=== PATIENT | male | born 1960 | race Caucasian/White ===

== ENCOUNTER 2017-09-18 13:00 | Emergency (ER) | payer OTHER ==
[2017-09-18 13:10] VITALS: BP 139/87; PULSE 79; RESP 16; TEMP 97.2; O2SAT 97
--- NOTE | 2017-09-18 13:19 | EDPHY ---
H & P Time Seen by Provider: 09/18/17 13:17 HPI/ROS: CHIEF COMPLAINT: Head injury and neck pain HISTORY OF PRESENT ILLNESS: Patient lost his balance and fell at 11:30 a.m. Today at the [facility]. He did not lose consciousness but remembers going to fall and then has a little bit of memory loss remembering standing up and seeing his son crying because (the patient's) his nose was bleeding. [place] now [place] stiffness which is worse with turning his neck especially to the left. He has a 1 or 2/10 headache. The neck pain is really the worst symptom. Mild in severity. It is not associated with vertigo or weakness or numbness in extremities. Started just after the fall. Aggravating factors as above. REVIEW OF SYSTEMS: Eye: no change in vision ENT: Nose bleed as above which has stopped spontaneously Cardiac: no chest pain or syncope Pulmonary: no cough or SOB Abdomen: No vomiting or abdominal pain Musculoskeletal: HPI Skin: no rash Neuro: HPI Constitutional: no fever : No symptoms A comprehensive 10 point review of systems is otherwise negative aside from elements mentioned in the history of present illness. PAST MEDICAL HISTORY: Negative Social history: , was with his son today General Appearance: Alert and conversant, cooperative. Eyes: No scleral icterus. Extraocular motion intact and pupils equal and reactive. ENT, Mouth: Normal mucous membranes. No hemotympanum. No active nasal bleeding and no septal hematoma. Respiratory: Normal respiratory effort, breath sounds equal, lungs are clear to auscultation. Cardiovascular: Regular rate and rhythm. Gastrointestinal: Abdomen is soft and non tender. Neurological: Alert, face symmetric, normal motor and sensory in extremities. Negative Romberg and not ataxic. Normal strength in deltoids, biceps, triceps, wrist extensor, and intrinsics. Skin: Warm and dry, no rashes. Musculoskeletal: No midline spinal tenderness including the neck. Psychiatric: Not agitated. Emergency Department course/MDM: Patient neck is cleared clinically, likely neck strain. Does not have distracting injury. Noncontrast head CT scanning versus serial observation discussed with the patient, he would prefer to proceed with observation and not imaging, as he feels well now, has minimal symptoms, was lucid enough [place] I think this is reasonable, his will be with him over the next 24-48 hours. Smoking Status: Never smoked Constitutional: Initial Vital Signs Temperature (C) 36.2 C 09/18/17 13:06 Heart Rate 79 09/18/17 13:06 Respiratory Rate 16 09/18/17 13:06 Blood Pressure 139/87 H 09/18/17 13:06 O2 Sat (%) 97 09/18/17 13:06 O2 Delivery Mode Room Air Allergies/Adverse Reactions: No Known Allergies Allergy (Unverified 06/01/12 09:26) Home Medications: Medication Instructions Recorded NK [No Known Home Meds] 09/18/17 Medical Decision Making Differential Diagnosis: Differential diagnosis considered for head injury including but not limited to concussion, skull fracture, intraparenchymal contusion, subarachnoid, subdural and epidural hematoma. I think that vertebral or carotid dissection, cervical spine fracture or dislocation, are unlikely. Departure - Departure Disposition: Home, Routine, Self-Care Clinical Impression: Concussion Qualifiers: Encounter type: initial encounter Loss of consciousness presence/duration: without LOC Qualified Code(s): S06.0X0A - Concussion without loss of consciousness, initial encounter Neck muscle strain Qualifiers: Encounter type: initial encounter Qualified Code(s): S16.1XXA - Strain of muscle, fascia and tendon at neck level, initial encounter Condition: Good Instructions: Cervical Strain (ED), Concussion (ED), Head Injury (ED) Referrals: Edson Negro MD [Primary Care Provider] - As per Instructions
== END 2017-09-18 13:52 | disposition home or self-care (01) ==
DX: S06.0X0A Concussion without loss of consciousness, initial encounter (principal); S16.1XXA Strain of muscle, fascia and tendon at neck level, initial encounter; V00.321A Fall from snow-skis, initial encounter; Y99.8 Other external cause status; Y93.23 Activity, snow (alpine) (downhill) skiing, snowboarding, sledding, tobogganing and snow tubing